=== PATIENT | male | born 1975 | race Caucasian/White ===

== ENCOUNTER 2016-11-25 13:57 | Inpatient (IN) | payer OTHER ==
--- NOTE | ~2016-11-25 | CO ---
Unit #: [id number] #: [id number] Patient: RANDY SOTOMAYOR [id number] [facility] [address] [place] [address] [id number] I MR#: [id number] NAME: RANDY SOTOMAYOR. ROOM: [facility] Age: 41 Sex: M Admission Date: 11/25/2016 : 1975 Attending Physician: Mk Garcia M.D. Primary Care Physician: Primary Care Physician No Consultation Date: 11/26/2016 CONSULTATION REPORT ADELA Mccarthy is a 41 year old who injured his fourth right finger prior to admission. This area was examined and detailed in his admission H and P dated 11/26/16. Please see H and P dated 11/26/16. Dictated by... Angi Hanks P.A.-C. for Marcellus Ac/leeanna TD: 12/04/2016 20:29 JOB #: [id number] CONSULTATION REPORT Page 1 of 1 X Angi Hanks CONSULTATION REPORT
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
--- NOTE | ~2016-11-25 | PA ---
Unit #: [id number] #: [id number] Patient: RANDY PICKERING [id number] [facility] [address] [place] [address] [id number] I MR#: [id number] NAME: RANDY PICKERING ROOM: [facility] Age: 41 Sex: M Admission Date: 11/25/2016 : 1975 Date of Assessment: Attending Physician: Mk Garcia M.D. Admitting Physician: Mk Garcia M.D. Primary Care Physician: Primary Care Physician No PSYCHIATRIC ASSESSMENT DATE OF SERVICE 11/26/2016. INFORMANTS The patient, reliable and [facility] records, reliable. CHIEF COMPLAINT "I need help." HISTORY OF PRESENT ILLNESS Mr. Pickering is a 41-year-old man with a history of alcohol dependence, who reports that he has relapsed on alcohol after some time. His goal is to return to [facility] in [place], [place], where he has a therapist that he felt was extremely helpful. He has also been not taking his seizure medication. He has presented with vague suicidal ideation with no plan and was admitted for alcohol detox and further assessment. PAST PSYCHIATRIC HISTORY Multiple admissions to [facility], the last in 02/2016. He has been at rehab facilities in the past as well including [facility]. FAMILY PSYCHIATRIC HISTORY Please see previous assessments. SOCIAL HISTORY The patient has unstable social support, employment, and erratic housing. He does have some supportive family and appears to have connections to certain care providers. PAST MEDICAL HISTORY Significant for withdrawal seizures. MEDICATIONS Keppra 750 mg b.i.d. ALLERGIES No known medication allergies. SUBSTANCE USE HISTORY As noted in previous assessments. The patient has an extensive history of alcohol dependence. MENTAL STATUS EXAMINATION Unit #: [id number] #: [id number] Patient: RANDY PICKERING presented as a disheveled man, appearing older than his stated age. He was cooperative with the examination. His speech was soft, but easily understood. Musculoskeletal examination was calm. His mood was depressed and anxious with a congruent affect. He was alert and fully oriented. His memory and concentration were fair. His thought processes were logical with no active psychosis. He denied suicidal ideation, intent, or plan. Insight and judgment were fair. Fund of knowledge and abstraction were intact. ASSETS AND LIABILITIES The patient knows local resources and is presenting voluntarily for detox. Liabilities include lack of psychosocial support and lack of adherence to treatment plan. ADMITTING DIAGNOSES AXIS I: Alcohol dependence with withdrawal, uncomplicated, F10.230. AXIS II: No diagnosis. AXIS III: Recent finger injury. AXIS IV: AXIS V: PSYCHIATRIC PLAN The patient was admitted and placed on the alcohol detox protocol. His physical examination and laboratory studies will be conducted and reviewed. He will enroll in dual diagnosis groups and activities. Keppra will be continued for treatment of his seizures treatment. TREATMENT GOALS Resolution of intoxication, improvement in insight, and improvement in coping skills. DISCHARGE PLANNING Follow up with [facility]. ESTIMATED LENGTH OF STAY 5 days. Dictated by... Mk Garcia M.D. RORO/venecia TD: 11/27/2016 13:33 JOB #: [id number] PSYCHIATRIC ASSESSMENT Page 1 of 1 X kM Garcia MD X PSYCHIATRIC ASSESSMENT
--- NOTE | ~2016-11-25 | DS ---
Unit #: [id number] #: [id number] Patient: RANDY PICKERING [id number] [facility] [address] [place] [address] [id number] I MR#: [id number] NAME: RANDY PICKERING. ROOM: [facility] Age: 41 Sex: M Admission Date: 11/25/2016 : 1975 Discharge Date: 11/28/2016 Attending Physician: Mk Garcia M.D. Primary Care Physician: Primary Care Physician No DISCHARGE SUMMARY REASON FOR ADMISSION Mr. Pickering is a 41-year-old man with a history of alcohol dependence, who reported he had been relapsed on alcohol for several months. He wants to return to [facility] in [place], [place], but needs to detox prior to presentation at that facility. He had vague suicidal ideation and was admitted for alcohol detox. DIAGNOSTIC STUDIES LABORATORY RESULTS: Please see hospital chart. HOSPITAL COURSE The patient was admitted and placed on the alcohol detox protocol. His Keppra for seizures was continued, and he had an uneventful period of detox with no seizures, delirium, or disorientation. He denied suicidal ideation, intent, or plan throughout the hospitalization. On the date of discharge, he felt able to discharge safely to the community. DISCHARGE DIAGNOSES AXIS I: Alcohol dependence with withdrawal. AXIS II: No diagnosis. AXIS III: Recent finger injury, none acute. AXIS IV: AXIS V: DISCHARGE INSTRUCTIONS Follow up with chemical dependence program of the patient's choice. DISCHARGE MEDICATIONS Keppra 750 mg b.i.d. for seizures. CONDITION AT DISCHARGE Improved. PROGNOSIS Fair. DIET AND ACTIVITY Per primary care doctor. Dictated by... Mk Garcia M.D. Unit #: [id number] #: [id number] Patient: RANDY PICKERING [facility]/modl TD: 12/06/2016 01:57 JOB #: [id number] DISCHARGE SUMMARY Page 1 of 1 X Mk Garcia MD X DISCHARGE SUMMARY
[~2016-11-25 13:57] MED LIST: AUGMENTIN PO; IBUPROFEN800 MG PO; KEPPRA500 M1 PO; NEURONTIN300 MG PO; NO MEDICATIONS; PROTONIX PO; VICODIN PO
[2016-11-26 09:51] LABS: BASOPHIL% 0.5 % (0-2.5); EOSINOPHIL# 0.1 X10e3 (0-0.7); EOSINOPHIL% 1.4 % (0.0-7.0); HEMATOCRIT 40.8 % (38.0-50.0); HEMOGLOBIN 13.7 gm/dL (13.0-16.0); LYMPHOCYTE# 1.3 X10e3 (1.0-3.5); LYMPHOCYTE% 24.8 % (17.0-45.0); MEAN CELL VOLUME 94.5 FL (83-96); MEAN CORPUSCULAR HEMOGLOBIN 31.8 PG (28-34); MEAN CORPUSCULAR HGB CONC 33.7 g/dL (30-36); MEAN PLATELET VOLUME 8.5 FL (6.5-11.5); MONOCYTE# 0.7 X10e3 (0-1.0); MONOCYTE% 13.4 % (3.0-12.0); NEUTROPHIL# 3.2 X10e3 (1.5-7.1); NEUTROPHIL% 59.9 % (40-75); PLATELET COUNT 119 X10e3 (140-420); RED BLOOD COUNT 4.32 X10e (3.90-5.60); RED CELL DISTRIBUTION WIDTH 12.9 % (11.0-15.5); WHITE BLOOD COUNT 5.4 X10e3 (4.0-10.5)
[2016-11-26 09:55] LABS: DIFF IND NO
[2016-11-26 10:01] LABS: ALBUMIN SERUM 3.8 g/dL (3.5-5.0); BILIRUBIN,TOTAL 0.6 mg/dL (0.2-2.0); BUN/CREATININE RATIO 12.5; CALCIUM SERUM 8.8 mg/dL (8.4-10.2); CREATININE SERUM 0.8 mg/dL (0.6-1.4); GLOM FILT RATE Estimated 109.5 mL/min (>60); POTASSIUM 3.4 mmol/L (3.5-5.1); PROTEIN TOTAL SERUM 6.2 g/dL (6.0-8.3)
== END 2016-11-28 12:50 | DRG 897 ==
LOC: P1E 18:04
PROVIDERS: Psychiatry & Neurology Psychiatry
PROC: HZ2ZZZZ Detoxification Services for Substance Abuse Treatment (ICD-10-PCS; principal; 2016-11-25)
DX: F10.230 Alcohol dependence with withdrawal, uncomplicated (principal); G40.909 Epilepsy, unspecified, not intractable, without status epilepticus
CPT/HCPCS: 80053; 85025; 86592

== ENCOUNTER 2016-12-04 18:24 | Inpatient (IN) | payer OTHER ==
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
--- NOTE | ~2016-12-04 | HP ---
Unit #: [id number] #: [id number] Patient: RANDY SOTOMAYOR [id number] [place] [address] [id number] I MR#: [id number] NAME: RANDY SOTOMAYOR ROOM: [facility]208 Age: 41 Sex: M Admission Date: 12/04/2016 : 1975 Attending Physician: Mk Garcia M.D. Admitting Physician: Mk Garcia M.D. Primary Care Physician: Primary Care Physician No HISTORY AND PHYSICAL Randy is a 41 year old who was admitted and discharged within the first 24 hours. He was not seen for an H and P. Dictated by... Angi Hanks P.A.-C. for Marcellus Ac/leeanna TD: 12/05/2016 21:24 JOB #: [id number] HISTORY AND PHYSICAL Page 1 of 1 X Angi Hanks X HISTORY AND PHYSICAL
--- NOTE | ~2016-12-04 | DS ---
Unit #: [id number] #: [id number] Patient: RANDY SOTOMAYOR [id number] [place] [address] [id number] I MR#: [id number] NAME: RANYD SOTOMAYOR. ROOM: [facility] Age: 41 Sex: M Admission Date: 12/04/2016 : 1975 Discharge Date: 12/05/2016 Attending Physician: Mk Garcia M.D. Primary Care Physician: Primary Care Physician No DISCHARGE SUMMARY REASON FOR ADMISSION Randy is a 41-year-old man with a history of alcoholism, who was recently discharged from this facility and relapsed in his home environment. He came in, in an intoxicated and confused state and was admitted for stabilization. LABORATORY DATA Please see hospital chart. HOSPITAL COURSE Randy was admitted overnight and placed on the alcohol detox protocol and his Keppra was restarted for withdrawal seizures. On the morning of my initial assessment, his confusion and alcohol-induced psychosis had completely cleared, and he had absolutely no suicidal ideation, intent, plan or psychosis. He stated that he wanted to get out of the hospital in order to begin a new job that he is starting tomorrow, although he plans to go back to the same environment. I expressed my concern that this would be unsafe and would entail a high probability of relapse, but the patient was not holdable against his will and was discharged at his request. DISCHARGE DIAGNOSES AXIS I: Alcohol dependence with withdrawal, uncomplicated. AXIS II: No diagnosis. AXIS III: History of withdrawal seizures. AXIS IV: AXIS V: DISCHARGE INSTRUCTIONS Follow up with evening CD-IOP at our facility. DISCHARGE MEDICATIONS Keppra 750 mg b.i.d. (the patient already has prescriptions). CONDITION AT DISCHARGE Fair. PROGNOSIS Fair. DIET AND ACTIVITY Ad myesha. Unit #: [id number] #: [id number] Patient: RANDY SOTOMAYOR Dictated by... Mk Garcia M.D. [facility]/venecia TD: 12/06/2016 03:21 JOB #: [id number] DISCHARGE SUMMARY Page 1 of 1 X Mk Garcia MD X DISCHARGE SUMMARY
== END 2016-12-05 12:25 | disposition home or self-care (01) | DRG 897 ==
LOC: P2S 19:51
PROC: HZ2ZZZZ Detoxification Services for Substance Abuse Treatment (ICD-10-PCS; principal; 2016-12-04)
DX: F10.239 Alcohol dependence with withdrawal, unspecified (principal); R45.851 Suicidal ideations

== ENCOUNTER 2017-01-12 17:53 | Inpatient (IN) | payer OTHER ==
[~2017-01-12] VITALS: Ht 177.8 cm; Wt 82.1 kg
--- NOTE | ~2017-01-12 | PA ---
Unit #: [id number] #: [id number] Patient: RANDY PICKERING [id number] [place] [address] [id number] I MR#: [id number] NAME: RANDY PICKERING. ROOM: [facility] Age: 41 Sex: M Admission Date: 01/12/2017 : 1975 Date of Assessment: 01/13/2017 Attending Physician: Mk Garcia M.D. Admitting Physician: Mk Garcia M.D. Primary Care Physician: Generic Doctor Not In System PSYCHIATRIC ASSESSMENT DATE OF SERVICE 01/13/2017. INFORMANTS The patient, reliable; [facility], reliable. CHIEF COMPLAINT Alcohol detox. HISTORY OF PRESENT ILLNESS Mr. Pickering is a 41-year-old man with a history of hospitalizations at this facility for chemical dependence, notably the abuse of alcohol. He has a history of withdrawal seizures and normally takes antiepileptic medications. He has been increasingly hopeless and helpless since his most recent relapse and has trouble tolerating outpatient detox symptomatology. He also expressed some suicidal ideation and was admitted for stabilization. PAST PSYCHIATRIC HISTORY As noted the patient has multiple stays at this facility for detox and has also been treated at [facility] in [place], [place]. FAMILY PSYCHIATRIC HISTORY Reviewed and unchanged from previous assessments. SOCIAL HISTORY The patient has been temporarily employed on and off and has a supportive girlfriend. They usually stay with acquaintances and did not have a permanent living residence. PAST MEDICAL HISTORY Significant for withdrawal seizures. MEDICATIONS Keppra 750 mg b.i.d. for seizures. ALLERGIES No known medication allergies. SUBSTANCE ABUSE HISTORY As noted, the patient has extensive history of alcohol dependence. MENTAL STATUS EXAMINATION Unit #: [id number] #: [id number] Patient: RANDY PICKERING presented as a mildly disheveled man, appearing older than his stated age. He was cooperative with the examination. His speech was soft and sparse, but easily understood. Musculoskeletal examination was calm. His mood was depressed with a congruent affect. He was alert and fully oriented. His memory and concentration were fair to good. His thought processes were logical with no active psychosis. He reported suicidal ideation, but denied intent or plan. Insight and judgment were fair. Fund of knowledge and abstraction were fair to good. ASSETS AND LIABILITIES The patient is familiar with local resources and presents voluntarily for treatment. Liabilities include frequent relapses and difficulty with housing and employment. ADMITTING DIAGNOSIS AXIS I: Alcohol dependence with withdrawal, uncomplicated. AXIS II: No diagnosis. AXIS III: History of withdrawal seizures. AXIS IV: AXIS V: PSYCHIATRIC PLAN Randy was admitted and placed on the alcohol detox protocol. Keppra will be restarted and he will enroll in dual diagnosis groups and activities. TREATMENT GOALS Resolution of intoxication, improvement in insight, and improvement in coping skills. DISCHARGE PLANNING Follow up with CD program of your choice. ESTIMATED LENGTH OF STAY 5 days. Dictated by... Mk Garcai M.D. RORO/venecia TD: 02/10/2017 09:23 JOB #: [id number] PSYCHIATRIC ASSESSMENT Page 1 of 1 X Mk Garcia MD X PSYCHIATRIC ASSESSMENT
--- NOTE | ~2017-01-12 | DS ---
Unit #: [id number] #: [id number] Patient: RANDY PICKERING [id number] [place] [address] [id number] MR#: [id number] NAME: RANDY PICKERING. ROOM: [facility] Age: 41 Sex: M Admission Date: 01/12/2017 : 1975 Discharge Date: 01/15/2017 Attending Physician: Mk Garcia M.D. Primary Care Physician: Generic Doctor Not In System DISCHARGE SUMMARY REASON FOR ADMISSION Mr. Pickering is a 41-year-old man with a long history of alcohol dependence, who reports he recently relapsed, but is beginning a job soon and needs to get sober. He had vague suicidal ideation and was admitted for stabilization. DIAGNOSTIC STUDIES LABORATORY RESULTS: Please see hospital chart. HOSPITAL COURSE The patient was admitted and placed on suicide and seizure precautions. Keppra was restarted together with Mobic that he takes for some chronic pain. He had an uneventful period of inpatient detox with no seizures, confusion, delirium, disorientation, or other adverse effects. He was able to contract for safety on the date of discharge with followup through his primary care physician and with [facility] after a stated court appearance. He also requested referral to the [facility] for Vivitrol. DISCHARGE DIAGNOSES AXIS I: Alcohol dependence with withdrawal, uncomplicated. AXIS II: No diagnosis. AXIS III: History of withdrawal seizures and history of chronic pain. AXIS IV: AXIS V: DISCHARGE INSTRUCTIONS Follow up with CD-IOP and in [facility] at this facility. DISCHARGE MEDICATIONS No prescriptions were given. The patient was continued on Keppra 750 mg b.i.d. for withdrawal seizures and Mobic 7.5 mg daily for chronic pain. CONDITION AT DISCHARGE Fair. PROGNOSIS Fair. DIET AND ACTIVITY Per primary care doctor. Unit #: [id number] #: [id number] Patient: RANDY PICKERING Dictated by... Mk Garcia M.D. [facility]/venecia TD: 02/09/2017 15:08 JOB #: [id number] DISCHARGE SUMMARY Page 1 of 1 X Mk Garcia MD X DISCHARGE SUMMARY
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
[2017-01-13 12:32] LABS: BASOPHIL% 0.4 % (0-2.5); EOSINOPHIL% 0.6 % (0.0-7.0); HEMATOCRIT 44.9 % (38.0-50.0); HEMOGLOBIN 15.3 gm/dL (13.0-16.0); LYMPHOCYTE# 1.2 X10e3 (1.0-3.5); LYMPHOCYTE% 22.3 % (17.0-45.0); MEAN CELL VOLUME 94.3 FL (83-96); MEAN CORPUSCULAR HEMOGLOBIN 32.2 PG (28-34); MEAN CORPUSCULAR HGB CONC 34.1 g/dL (30-36); MEAN PLATELET VOLUME 8.4 FL (6.5-11.5); MONOCYTE# 0.4 X10e3 (0-1.0); MONOCYTE% 8.1 % (3.0-12.0); NEUTROPHIL# 3.7 X10e3 (1.5-7.1); NEUTROPHIL% 68.6 % (40-75); PLATELET COUNT 170 X10e3 (140-420); RED BLOOD COUNT 4.76 X10e (3.90-5.60); RED CELL DISTRIBUTION WIDTH 13.2 % (11.0-15.5); WHITE BLOOD COUNT 5.3 X10e3 (4.0-10.5)
[2017-01-13 12:40] LABS: DIFF IND NO
[2017-01-13 12:48] LABS: ALBUMIN SERUM 3.9 g/dL (3.5-5.0); BILIRUBIN,TOTAL 1.2 mg/dL (0.2-2.0); BUN/CREATININE RATIO 11.42; CALCIUM SERUM 9.1 mg/dL (8.4-10.2); CREATININE SERUM 0.7 mg/dL (0.6-1.4); GLOM FILT RATE Estimated 115.6 mL/min (>60); PROTEIN TOTAL SERUM 6.6 g/dL (6.0-8.3)
== END 2017-01-15 14:39 | disposition home or self-care (01) | DRG 897 ==
LOC: P2S 21:10
PROVIDERS: Psychiatry & Neurology Psychiatry
PROC: HZ2ZZZZ Detoxification Services for Substance Abuse Treatment (ICD-10-PCS; principal; 2017-01-12)
DX: F10.230 Alcohol dependence with withdrawal, uncomplicated (principal); G40.909 Epilepsy, unspecified, not intractable, without status epilepticus
CPT/HCPCS: 80053; 85025; 86592